=== PATIENT | female | born 1955 | race Caucasian/White ===

== ENCOUNTER 2020-09-08 09:45 | Inpatient (IN) | payer MEDICARE, MEDICAID ==
[~2020-09-08] VITALS: Ht 154.9 cm; Wt 58.1 kg
[2020-09-08 09:59] VITALS: BP 127/65
[2020-09-08 10:24] LABS: BASO # 0.1 10*3/uL (0.0-0.1); EOS % 0.6 % (1.0-4.0); HEMATOCRIT 40.7 % (37.0-47.0); LYMPH # 1.6 10*3/uL (1.3-4.4); LYMPH % 22.3 % (27.0-41.0); MEAN CELL VOLUME 94.7 fl (81.0-99.0); MEAN CORPUSCULAR HGB 29.5 pg (27.0-31.0); MEAN CORPUSCULAR HGB CONC 31.2 g/dl (33.0-37.0); MEAN PLATELET VOLUME 10.7 fl (9.6-12.3); MONO # 0.6 10*3/uL (0.1-1.0); NEUT # 4.8 10*3/uL (2.3-7.9); NEUT % 66.8 % (47.0-73.0); PLATELET COUNT AUTOMATED 236 10*3/uL (130-400); RED CELL DISTRI WIDTH 13.1 % (0-14.5); WHITE BLOOD COUNT 7.1 10*3/uL (4.8-10.8)
[2020-09-08 10:31] LABS: BILIRUBIN Negative (Negative); BLOOD Negative (Negative); CLARITY Cloudy (Clear); COLOR Yellow (Yellow); GLUCOSE Negative (Negative); KETONE Trace (Negative); LEUKO ESTERASE 2+ (Negative); NITRITE Negative (Negative); PH 7.5 (4.5-8.0)
[2020-09-08 10:36] LABS: ACT PARTIAL THROMBO TIME 23.1 SECONDS (20.0-32.1); INTERNATIONAL NORM RATIO 0.9 (2.0-3.5)
[2020-09-08 10:43] LABS: ALBUMIN 3.5 gm/dl (3.1-4.5); ALKALINE PHOSPHATASE 108 U/L (45-117); BUN 15 mg/dl (7-24); CHLORIDE 112 mmol/L (98-107); CREATININE 0.86 mg/dL (0.55-1.02); LIPASE 107 U/L (73-393); POTASSIUM 3.7 mmol/L (3.5-5.1); SGOT/AST 16 IU/L (3-35); SGPT/ALT 20 U/L (12-78); SODIUM 141 mmol/L (136-145); TOTAL PROTEIN 7.4 gm/dL (6.4-8.2)
[2020-09-08 10:44] LABS: TROPONIN I < 0.015 ng/ml (<0.045)
[2020-09-08 10:59] LABS: MUCOUS 2+
[2020-09-08 11:00] LABS: BACTERIA 1+
--- NOTE | 2020-09-08 12:45 | NUR ---
Received call from Candice Atkins CNP regarding [facility] follows this patient in the community and they would like to follow patient in house as well.
[2020-09-08 14:34] VITALS: BP 146/55
--- NOTE | 2020-09-08 14:39 | NUR ---
PATIENT RESTING IN BED WITH EYES CLOSED. RR EASY AND NON-LABORED. CALL LIGHT WITHIN REACH. APPEARS TO BE IN NO DISTRESS AT THIS TIME.
--- NOTE | 2020-09-08 15:00 | NUR ---
PATIENT UP AND TO RESTROOM.
--- NOTE | 2020-09-08 15:12 | NUR ---
GAVE PATIENT A LUNCH BOX.
--- NOTE | 2020-09-08 16:10 | NUR ---
PATIENT UP AND TO RESTROOM
--- NOTE | 2020-09-08 17:00 | NUR ---
PATIENT UP AND TO RESTROOM
--- NOTE | 2020-09-08 17:32 | NUR ---
CALLED NIGEL PLASCENCIA IN [facility] TO FAX MEDICATION LIST FOR PATIENT.
[2020-09-08] MEDS ORDERED: RISPERDAL3 M1 PO (18:04)
[2020-09-08] MEDS ORDERED: BUSPIRONE HCL10 MG PO (18:05)
[2020-09-08] MEDS ORDERED: PANTOPRAZOLE SO40 MG PO (18:06)
[2020-09-08] MEDS ORDERED: CARBAMAZEPINE200 MG PO (18:08)
--- NOTE | 2020-09-08 18:12 | NUR ---
CONSULTED DR. GUTIERREZ.
--- NOTE | 2020-09-08 18:38 | NUR ---
PATIENT RESTING IN BED WATCHING TV. RR EASY AND NON-LABORED. CALL LIGHT WITHIN REACH. PATIENT APPEARS TO BE IN NO DISTRESS, WITH NO COMPLAINTS.
--- NOTE | 2020-09-08 20:29 | NUR ---
PT RESTING IN BED WATCHING TV, NO ACUTE DISTRESS NOTED UPON THIS RN EXITING THE ROOM, CALL LIGHT WITHIN REACH
--- NOTE | 2020-09-08 21:39 | NUR ---
PT RESTING IN BED WITH EYES CLOSED, CALL LIGHT WITHIN REACH, NO ACUTE DISTRESS NOTED UPON THIS RN EXITING THE ROOM
[2020-09-08 23:56] VITALS: BP 141/62
--- NOTE | 2020-09-09 02:14 | NUR ---
TRANSPORTING PT TO ROOM 523 TO KRISTY OLIVA
[2020-09-09 02:20] VITALS: BP 152/66
[2020-09-09 07:22] LABS: BASO # 0.1 10*3/uL (0.0-0.1); EOS # 0.1 10*3/uL (0.0-0.4); EOS % 0.9 % (1.0-4.0); LYMPH # 1.8 10*3/uL (1.3-4.4); LYMPH % 31.5 % (27.0-41.0); MEAN CELL VOLUME 94.5 fl (81.0-99.0); MEAN CORPUSCULAR HGB 29.4 pg (27.0-31.0); MEAN CORPUSCULAR HGB CONC 31.1 g/dl (33.0-37.0); MEAN PLATELET VOLUME 11.1 fl (9.6-12.3); MONO # 0.6 10*3/uL (0.1-1.0); MONO % 10.1 % (3.0-9.0); NEUT # 3.3 10*3/uL (2.3-7.9); NEUT % 56.3 % (47.0-73.0); PLATELET COUNT AUTOMATED 232 10*3/uL (130-400); RED BLOOD COUNT 4.02 10*6/uL (4.10-5.10); RED CELL DISTRI WIDTH 13.1 % (0-14.5); WHITE BLOOD COUNT 5.9 10*3/uL (4.8-10.8)
[2020-09-09 07:59] LABS: ALBUMIN 3.2 gm/dl (3.1-4.5); ALKALINE PHOSPHATASE 93 U/L (45-117); BUN 19 mg/dl (7-24); CHLORIDE 113 mmol/L (98-107); CHOLESTEROL 225 mg/dL (<200); CREATININE 0.65 mg/dL (0.55-1.02); FREE T4 0.82 ng/dl (0.76-1.46); HDL CHOLESTEROL 77 mg/dl (40-60); LDL CHOLESTEROL 124 mg/dL (9-159); POTASSIUM 3.6 mmol/L (3.5-5.1); SGOT/AST 16 IU/L (3-35); SGPT/ALT 17 U/L (12-78); SODIUM 142 mmol/L (136-145); TOTAL PROTEIN 6.4 gm/dL (6.4-8.2); TRIGLYCERIDES 121 mg/dl (<150); VLDL CHOLESTEROL 24 mg/dL (6-40)
[2020-09-09 08:00] VITALS: BP 140/57
[2020-09-09 08:04] LABS: THYROID STIM HORMONE (HS) 0.311 uIU/ml (0.358-4.75)
--- NOTE | 2020-09-09 08:52 | NUR ---
Notified hospitalist nurse director that [facility] would like to follow in the hospital as they follow the patient in the community per Candice Atkins CNP.
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
[2020-09-09 09:51] LABS: VITAMIN D, 25-HYDROXY 31.2 ng/mL (30-100)
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
--- NOTE | 2020-09-09 10:49 | NUR ---
Office notified of consult for pallative care. States they will pass on info to Candice Atkins.
--- NOTE | 2020-09-09 11:03 | NUR ---
Faxed palliative care order to [facility] and notified the [facility] nurse.
--- NOTE | 2020-09-09 11:55 | NUR ---
Covid swab obtained and walked to lab.
--- NOTE | 2020-09-09 11:57 | NUR ---
Received Call From [facility]. Referral is Declined. No Reason Given.
[2020-09-09 12:00] VITALS: BP 100/77
--- NOTE | 2020-09-09 12:30 | NUR ---
Notified by relief RN that while I was at lunch pt had interview with Lucrecia Keene TUBER MACHINE CUTTER for [facility] via IPad.
--- NOTE | 2020-09-09 13:40 | NUR ---
OT NOTE Occupational therapy order received and chart reviewed. Attempted to see patient this AM at bedside however she was under nursing care. Attempted a second time this afternoon and patient was eating her lunch. Will check back when available for an OT eval. Thank you. Shannan Deal, OTR/L
--- NOTE | 2020-09-09 13:40 | NUR ---
PHYSICAL THERAPY Multiple attempts to see patient in AM. Patient eating lunch at 13:40. Will return to complete PT evaluation. Thank you. Daphney Patel,PT,DPT
--- NOTE | 2020-09-09 14:50 | NUR ---
Occupational Therapy evaluation completed on five with full evaluation to follow. Recommend occupational therapy per plan of care and SNF upon discharge. Thank you for this referral. Shannan Deal OTR/L
--- NOTE | 2020-09-09 15:00 | NUR ---
Spoke with Lucrecia Keene states she is able to deem pt incompetent and if the family has any questions regarding this she will call them, states to text or relay their number to her if needed.
--- NOTE | 2020-09-09 15:15 | NUR ---
PHYSICAL THERAPY Physical Therapy evaluation completed on 5E with full evaluation to follow. Low complexity skilled PT evaluation per chart review and evaluation, [id number]. Recommend physical therapy per plan of care and SNF upon discharge. Thank you for this referral. Daphney Patel,PT,DPT
--- NOTE | 2020-09-09 15:20 | NUR ---
I called pharmacy for invega for pt. Spoke with Molly.
[2020-09-09 16:00] VITALS: BP 108/63
--- NOTE | 2020-09-09 16:46 | NUR ---
SPEECH PATHOLOGY Pt seen for bedside swallow evaluation d/t possible aspiration per orders. ROOF BOLTER HELPER ID'd pt via Name and on wrist band. Pt sitting upright in bedside chair, alert, responsive, and cooperative throughout evaluation. CN exam largely WNL. Lingual tremor noted; pt has Dx of Parkinson's. This ROOF BOLTER HELPER provided pt with PO trials of thin water per straw and regular solid (sandra cracker). Pt passed 3 oz water protocol with no s/s noted during or within one minute of completion, clear post-prandial vocal quality noted. Mastication of regular solid somewhat prolonged as pt did not have top dentures in place as she reported they were being cleaned; however, mastication functional for regular textures with adequate oral clearance and no overt s/s noted by this ROOF BOLTER HELPER. RECOMMENDATIONS: REGULAR DIET AND THIN LIQUIDS This ROOF BOLTER HELPER informed pt's RN, Padilla, of diet recommendations. No further ST services warranted at this time. Full report to follow. Thank you for this referral. YOUSUF BARNES M.A. [facility]-ROOF BOLTER HELPER
--- NOTE | 2020-09-09 17:06 | NUR ---
OT NOTE Nursing screen received. Patient is currently on OT caseload. Will continue with POC as able. Thank you. Shannan Deal, OTR/L
--- NOTE | 2020-09-09 17:11 | NUR ---
PHYSICAL THERAPY Nursing screen received and chart reviewed. PT order received and evaluation complete. Recommend SNF at discharge. Thank you. Daphney Patel,PT,DPT
[2020-09-09 20:00] VITALS: BP 116/46
[2020-09-10] VITALS: BP 106/63
--- NOTE | 2020-09-10 08:45 | NUR ---
PHYSICAL THERAPY Patient seen this am 1;1 for therapy visit and was sitting up on EOB upon therapist arrival. Patient identified by name / and joined by OT unit assistant for observation this session. Patient was pleasant, voicing no c/o's pain at this time and transfers sit to stand CGA x 1. Patient ambulates without AD, C++ QUANT DEVELOPER/CGA, 10'x 1 to bathroom, then additional 35'x 1, ad joan in room, C++ QUANT DEVELOPER/CGA, demonstrating slow, cautious gait pattern. Patient was a little unsteady during all 90/180 turns, requiring v/c to improve focus on task. Patient returned to bedside chair with mild fatigue and remained with call light, tray table, telephone, body alarm for safety. Will continue per POC as tolerated, total treatment time 17 minutes. Darell Lu, CORE MICROARCHITECT
--- NOTE | 2020-09-10 09:05 | NUR ---
OT NOTE Pt was seen this A.M. 1:1 for 15 minute OT session. Upon arrival pt was sitting upright on the EOB. Pt identified by name and and had complaints of L shoulder pain which she did not rate on 0-10 pain scale. Pt completed sit to stand from bed level with CGA followed by functional mobility to the bathroom with CGA and verbal prompts for safety awareness due to being impulsive increasing risk of falls. Pt transferred on/off standard commode with CGA due to poor safety awareness with alignment. Clothing management completed with CGA and toilet hygiene completed with SBA while seated. She then stood sink side while washing her hands with SBA. Pt was able to self sequence all tasks. Functional mobility completed back to the recliner with CGA. There she was left sitting upright with call light in hand, tray table in place, and body alarm activated for safety. Continue with rec D/C plan to SNF. VIKCI Gonzalez/Ponce
--- NOTE | 2020-09-10 10:48 | NUR ---
Discussed with Team in MDT Meeting Discharge Plans. [facility] Declined. Daughter had not given Second Choice for Nursing Facility. Pt. came to [facility] From Home with her Daughter. Plan is for Hospitalist Team to Discharge Patient today and She is ordered Invega Sustenna Injection on Monday. Will Call Lucrecia Keene Psych Nurse Practitioner to Inquire if there are Other Medications that Could be Ordered for this Patient to Go Home On. Spoke with Lucrecia Keene via telephone. Advised that Invega Sustenna is High cost for Pt. to Afford and Hospitalist Team would like to Discharge Patient Home. Dr. Ross Gave Orders for Resperdal 2mg HS to Start September 27. Notified Dr. Pascual of Pt. family available to come and get Pt. for Discharge today. Daughter Regina will Pick Pt. Up and Transport Home.
[2020-09-10] MEDS ORDERED: BENZTROPINE ME0.5 MG PO (10:55)
[2020-09-10] MEDS ORDERED: RIVASTIGMINE1 EAC1 T (10:55)
[2020-09-10] MEDS ORDERED: AMLODIPINE BESYL5 MG PO (10:55)
[2020-09-10] MEDS ORDERED: LUMIGAN50 DRP OPH (10:56)
--- NOTE | 2020-09-10 12:05 | NUR ---
Spoke with Dr. Pascual regarding risperdel on dc meds still at 6 mg at HS. Notified that in case management notes it says that Kody Keene PAPER TESTING SUPERVISOR wanted pt on 2mg and not to start until 09/27/20. States she will update on dc instructions.
[2020-09-10] MEDS ORDERED: RISPERDAL2 M1 PO (12:08)
--- NOTE | 2020-09-10 13:20 | NUR ---
Spoke with pt daughter Regina notified that pt is ready for dc. Reviewed dc instructions with daughter over phone and also informed her that I had written when pt needs next doses of medication. Verbalized understanding. States she will be here in about 30 minutes to machine operator picker her mom.
--- NOTE | 2020-09-10 14:13 | NUR ---
Pt dc via wheelchair by this RN. Met daughter out main entrance and pt dc in care of daughter. QUestions answered.
--- NOTE | 2020-09-14 07:34 | NUR ---
PHYSICAL THERAPY CO-SIGN I approve of the Physical Therapy notes written above. CECELIA BROWN PT, DPT
--- NOTE | 2020-09-14 07:45 | NUR ---
OCCUPATIONAL THERAPY CO-SIGN I approve of the Occupational Therapy notes written above. LONNIE BOBO, OTR/L
== END 2020-09-10 14:13 | disposition home or self-care (01) | DRG 689 ==
LOC: ED 09:45 → EDSEX 09:49 → 5E 14:12 → EDHOLD 14:12 → 5E 22:50
PROVIDERS: Emergency Medicine; Registered Nurse; ADMIT Internal Medicine; ATTEND Internal Medicine
DX: N39.0 Urinary tract infection, site not specified (principal); G93.41 Metabolic encephalopathy; E44.1 Mild protein-calorie malnutrition; F03.90 Unspecified dementia, unspecified severity, without behavioral disturbance, psychotic disturbance, mood disturbance, and anxiety; I10 Essential (primary) hypertension; H40.9 Unspecified glaucoma; K21.9 Gastro-esophageal reflux disease without esophagitis; G20 Parkinson's disease; F25.0 Schizoaffective disorder, bipolar type; Z20.828 Contact with and (suspected) exposure to other viral communicable diseases; F31.9 Bipolar disorder, unspecified; Z88.0 Allergy status to penicillin; Z91.041 Radiographic dye allergy status; Z91.011 Allergy to milk products; Z68.24 Body mass index [BMI] 24.0-24.9, adult

== ENCOUNTER 2022-12-23 11:43 | Emergency (ER) | payer MEDICARE, MEDICAID ==
[~2022-12-23] VITALS: Ht 154.9 cm; Wt 51.3 kg
[~2022-12-23 11:43] MED LIST: AMLODIPINE BESYL5 MG PO; BENZTROPINE ME0.5 MG PO; BUSPIRONE HCL10 MG PO; CARBAMAZEPINE200 MG PO; LUMIGAN50 DRP OPH; PANTOPRAZOLE SO40 MG PO; RISPERDAL2 M1 PO; RISPERDAL3 M1 PO; RIVASTIGMINE1 EAC1 T
[2022-12-23 12:55] LABS: BASO # 0.1 10*3/uL (0.0-0.1); BASO % 0.9 % (0.0-1.0); EOS # 0.2 10*3/uL (0.0-0.4); EOS % 2.4 % (1.0-4.0); HEMATOCRIT 40.1 % (37.0-47.0); LYMPH # 2.2 10*3/uL (1.3-4.4); LYMPH % 24.5 % (27.0-41.0); MEAN CELL VOLUME 102.3 fl (81.0-99.0); MEAN CORPUSCULAR HGB 32.1 pg (27.0-31.0); MEAN CORPUSCULAR HGB CONC 31.4 g/dl (33.0-37.0); MEAN PLATELET VOLUME 11.6 fl (9.6-12.3); MONO # 0.7 10*3/uL (0.1-1.0); MONO % 7.6 % (3.0-9.0); NEUT # 5.7 10*3/uL (2.3-7.9); NEUT % 64.4 % (47.0-73.0); PLATELET COUNT AUTOMATED 251 10*3/uL (130-400); RED BLOOD COUNT 3.92 10*6/uL (4.10-5.10); RED CELL DISTRI WIDTH 13.3 % (0-14.5); WHITE BLOOD COUNT 8.8 10*3/uL (4.8-10.8)
[2022-12-23 13:11] LABS: ACT PARTIAL THROMBO TIME 27.9 SECONDS (20.0-32.1)
[2022-12-23 13:13] LABS: ALKALINE PHOSPHATASE 95 U/L (46-116); BUN 13 mg/dl (9-23); CHLORIDE 106 mmol/L (98-107); LIPASE 30 U/L (12-53); POTASSIUM 4.5 mmol/L (3.4-5.1); SGPT/ALT 21 U/L (10-49); TOTAL PROTEIN 6.8 gm/dL (6.0-8.0)
[2022-12-23 13:25] LABS: BILIRUBIN Negative (Negative); BLOOD Negative (Negative); CLARITY Turbid (Clear); COLOR Yellow (Yellow); GLUCOSE Negative (Negative); KETONE Negative (Negative); LEUKO ESTERASE Trace (Negative); NITRITE Negative (Negative); SPECIFIC GRAVITY 1.015 (1.001-1.030); UROBILINOGEN 0.2 E.U./dl (0.0-1.0)
[2022-12-23 13:54] LABS: BACTERIA 2+
== END 2022-12-23 16:45 ==
LOC: ED
PROVIDERS: Emergency Medicine
DX: R10.9 Unspecified abdominal pain (principal); Z88.0 Allergy status to penicillin; Z91.041 Radiographic dye allergy status; Z91.011 Allergy to milk products; Z79.899 Other long term (current) drug therapy

== ENCOUNTER 2024-04-01 12:27 | Inpatient (IN) | payer MEDICARE ==
[~2024-04-01 12:27] MED LIST changes: +ALPHAGAN-P 0.2%5 ML OPH; +ARTIFICIAL TEAR1512 OU; +AZOPT OP; +COL-RITE100 M1 PO; +COLACE 2-IN-11 EACH PO; +CRANBERRY200 MG PO; +EXELON1 EAC2 TD; +FLUTICASONE PRO12 G2 NAS; +LASIX20 MG PO; +LATUDA80 M1 PO; +LEVOXYL88 MCG PO; +LOPERAMIDE HCL2 MG PO; +MELATONIN3 MG PO; +MIRALAX119 GM PO; +MULTIPLE VITAM1 EAC1 PO; +MYLANTA MAXIMU355 M1 PO; +NORVASC5 MG PO; +OXYBUTYNIN5 MG PO; +OYSTER SHELL C1 EAC9 PO; +Ondansetron4 MG PO; +POTASSIUM CHLO20 ME3 PO; +PRAVASTATIN SOD10 MG PO; +REMERON30 M1 PO; +TOPAMAX100 M1 PO; +TRELEGY ELLIPT1 EACH INH; +TYLENOL EXTRA500 MG PO; +VISTARIL25 MG PO
[2024-04-01] MEDS ORDERED: LORazepam 1 MG TAB PO PRN (14:40)
[2024-04-01] MEDS ORDERED: Ziprasidone Mesylate 20 MG VIAL IM PRN (14:45)
[2024-04-01] MEDS ORDERED: LORazepam 2 MG/ML VIAL IM PRN (14:45)
[2024-04-01] MEDS ORDERED: Water, Sterile 10 ML VIAL IM PRN (14:50)
[2024-04-01 15:14] VITALS: BP 104/62
[2024-04-01] MEDS ORDERED: ACETAMINOPHEN 325 MG TAB PO PRN (17:10)
[2024-04-01] MEDS ORDERED: MG-AL HYDROXIDE/SIMETICONE 30 ML UDC PO PRN (17:10)
[2024-04-01] MEDS ORDERED: Magnesium Hydroxide 30 ML UDC PO PRN (17:10)
[2024-04-01] MEDS ORDERED: Loperamide Hydrochloride 2 MG CAP PO PRN (18:10)
[2024-04-01] MEDS ORDERED: Ondansetron Hydrochloride 4 MG TAB PO PRN (18:10)
[2024-04-01 20:00] VITALS: BP 118/50
[2024-04-01] MEDS ORDERED: BUDESONIDE 0.5 MG AMP NEB SCH (20:00)
[2024-04-01] MEDS ORDERED: DOCUSATE SODIUM 100 MG CAP PO SCH (21:00)
[2024-04-01] MEDS ORDERED: ACETAMINOPHEN 500 MG TAB PO SCH (21:00)
[2024-04-01] MEDS ORDERED: Hypromellose 25 ML BOT OPH SCH (21:00)
[2024-04-01] MEDS ORDERED: CALCIUM (OSCAL) 500MG PO SCH (21:00)
[2024-04-01] MEDS ORDERED: Mirtazapine 15 MG TAB PO SCH (21:00)
[2024-04-01] MEDS ORDERED: BRINZOLAMIDE OP SCH (21:00)
[2024-04-01] MEDS ORDERED: BREXPIPRAZOLE 1 MG TABLET PO SCH (21:00)
[2024-04-01] MEDS ORDERED: BRIMONIDINE 0.2% 5 ML BOTTLE OPH SCH (21:00)
[2024-04-01] MEDS ORDERED: TOPIRAMATE 100 MG TAB PO SCH (22:00)
[2024-04-01] MEDS ORDERED: Levothyroxine Sodium 88 MCG TAB PO SCH (22:00)
[2024-04-01] MEDS ORDERED: BIMATOPROST 50 DRP BOT OPH SCH (22:00)
[2024-04-02 07:58] LABS: BASO # 0.1 10*3/uL (0.0-0.1); BASO % 1.1 % (0.0-1.0); EOS # 0.1 10*3/uL (0.0-0.4); EOS % 1.9 % (1.0-4.0); HEMATOCRIT 40.8 % (37.0-47.0); LYMPH # 1.6 10*3/uL (1.3-4.4); LYMPH % 25.7 % (27.0-41.0); MEAN CORPUSCULAR HGB 31.6 pg (27.0-31.0); MEAN CORPUSCULAR HGB CONC 31.9 g/dl (33.0-37.0); MEAN PLATELET VOLUME 11.1 fl (9.6-12.3); MONO # 0.5 10*3/uL (0.1-1.0); MONO % 8.1 % (3.0-9.0); NEUT % 62.9 % (47.0-73.0); PLATELET COUNT AUTOMATED 201 10*3/uL (130-400); RED BLOOD COUNT 4.12 10*6/uL (4.10-5.10); WHITE BLOOD COUNT 6.4 10*3/uL (4.8-10.8)
[2024-04-02 08:00] VITALS: BP 118/50
[2024-04-02] MEDS ORDERED: Albuterol Sulf/Ipratropium 3 ML VIAL NEB SCH (08:25)
[2024-04-02 08:28] LABS: ALKALINE PHOSPHATASE 84 U/L (46-116); BUN 16 mg/dl (9-23); CHLORIDE 107 mmol/L (98-107); CHOLESTEROL 161 mg/dL (<200); LDL CHOLESTEROL 75 mg/dL (9-159); POTASSIUM 3.8 mmol/L (3.4-5.1); SGPT/ALT 15 U/L (5-49); TOTAL PROTEIN 6.5 gm/dL (6.0-8.0); TRIGLYCERIDES 106 mg/dl (<150)
[2024-04-02 08:48] LABS: VITAMIN D, 25-HYDROXY 55.9 ng/mL (30-100)
[2024-04-02] MEDS ORDERED: Polyethylene Glycol 3350 17 GM PACKET PO SCH (09:00)
[2024-04-02] MEDS ORDERED: MULTIVITAMIN 1 TAB TAB PO SCH (09:00)
[2024-04-02] MEDS ORDERED: amLODIPine besylate 5 MG TAB PO SCH (09:00)
[2024-04-02] MEDS ORDERED: Rivastigmine Tartrate 4.6 MG/24 HR PATCH T SCH (09:00)
[2024-04-02] MEDS ORDERED: Paliperidone 3 MG TER PO SCH (09:35)
[2024-04-02] MEDS ORDERED: UMECLIDIN INH SCH (10:00)
[2024-04-02] MEDS ORDERED: POTASSIUM CHLORIDE 20 MEQ TAB PO SCH (10:00)
[2024-04-02] MEDS ORDERED: VILANTER INH SCH (10:00)
[2024-04-02] MEDS ORDERED: FUROSEMIDE 20 MG TAB PO SCH (10:00)
[2024-04-02] MEDS ORDERED: FLUTICASONE INH SCH (10:00)
[2024-04-02] MEDS ORDERED: SIMVASTATIN 20 MG TAB PO SCH (10:00)
[2024-04-02] MEDS ORDERED: Oxybutynin Chloride 5 MG TAB PO SCH (10:00)
[2024-04-02 20:00] VITALS: BP 108/60
[2024-04-02] MEDS ORDERED: Memantine Hydrochloride 5 MG TAB PO SCH (21:00)
[2024-04-03 07:55] VITALS: BP 96/58
[2024-04-03] MEDS ORDERED: Memantine Hydrochloride 5 MG TAB PO SCH (09:00)
[2024-04-03] MEDS ORDERED: Rivastigmine Tartrate 9.5 MG/24 HR PATCH T SCH (09:00)
[2024-04-03 19:17] VITALS: BP 120/72
[2024-04-04 07:59] VITALS: BP 123/50
[2024-04-04] MEDS ORDERED: Memantine Hydrochloride 5 MG TAB PO SCH (09:00)
[2024-04-04] MEDS ORDERED: Albuterol Sulf/Ipratropium 3 ML VIAL NEB PRN (10:25)
[2024-04-04] MEDS ORDERED: Cyproheptadine Hydrochloride 4 MG TAB PO SCH (11:00)
[2024-04-04 20:00] VITALS: BP 104/60
[2024-04-04] MEDS ORDERED: Memantine Hydrochloride 10 MG TAB PO SCH (21:00)
[2024-04-04 22:10] LABS: BILIRUBIN Negative (Negative); BLOOD Negative (Negative); CLARITY Clear (Clear); COLOR Yellow (Yellow); GLUCOSE Negative (Negative); KETONE Negative (Negative); LEUKO ESTERASE 2+ (Negative); NITRITE Negative (Negative); UROBILINOGEN 0.2 E.U./dl (0.0-1.0)
[2024-04-04 22:44] LABS: BACTERIA TRACE; WBC 31-40 wbc/hpf (0-5)
[2024-04-05 08:00] VITALS: BP 129/53
[2024-04-05 20:00] VITALS: BP 113/61
[2024-04-06 08:00] VITALS: BP 129/58
[2024-04-06 20:00] VITALS: BP 135/60
[2024-04-07 07:05] LABS: BASO # 0.1 10*3/uL (0.0-0.1); EOS # 0.2 10*3/uL (0.0-0.4); HEMATOCRIT 42.7 % (37.0-47.0); LYMPH # 2.3 10*3/uL (1.3-4.4); LYMPH % 31.4 % (27.0-41.0); MEAN CELL VOLUME 99.8 fl (81.0-99.0); MEAN CORPUSCULAR HGB 31.3 pg (27.0-31.0); MEAN CORPUSCULAR HGB CONC 31.4 g/dl (33.0-37.0); MEAN PLATELET VOLUME 11.6 fl (9.6-12.3); MONO # 0.8 10*3/uL (0.1-1.0); MONO % 11.1 % (3.0-9.0); NEUT % 54.2 % (47.0-73.0); PLATELET COUNT AUTOMATED 181 10*3/uL (130-400); RED BLOOD COUNT 4.28 10*6/uL (4.10-5.10); RED CELL DISTRI WIDTH 12.7 % (0-14.5); WHITE BLOOD COUNT 7.3 10*3/uL (4.8-10.8)
[2024-04-07 07:53] VITALS: BP 142/66
[2024-04-07] MEDS ORDERED: Paliperidone 6 MG TER PO SCH (09:00)
[2024-04-07] MEDS ORDERED: Memantine Hydrochloride 10 MG TAB PO SCH (09:00)
[2024-04-07 19:37] VITALS: BP 138/62
[2024-04-07] MEDS ORDERED: Ciprofloxacin Hydrochloride 500 MG TAB PO SCH (21:00)
[2024-04-08 08:00] VITALS: BP 104/53
[2024-04-08] MEDS ORDERED: DRONABINOL 2.5 MG CAP PO SCH (16:30)
[2024-04-08 20:00] VITALS: BP 105/70
[2024-04-08] MEDS ORDERED: Memantine Hydrochloride 10 MG TAB PO SCH (21:00)
[2024-04-08] MEDS ORDERED: clomiPRAMINE Hydrochloride 25 MG CAP PO SCH (21:00)
[2024-04-09 08:00] VITALS: BP 118/86
[2024-04-09] MEDS ORDERED: RIVASTIGMINE 13.3 MG/24 HR TDM T SCH (09:00)
[2024-04-09 20:00] VITALS: BP 120/61
[2024-04-09] MEDS ORDERED: clomiPRAMINE Hydrochloride 25 MG CAP PO SCH (21:00)
[2024-04-10 08:00] VITALS: BP 115/62
[2024-04-10 18:31] VITALS: BP 120/62
[2024-04-11 08:00] VITALS: BP 97/64
[2024-04-11] MEDS ORDERED: PALIPERIDONE 9 MG PO SCH (09:00)
[2024-04-11 11:19] LABS: ALKALINE PHOSPHATASE 72 U/L (46-116); BUN 8 mg/dl (9-23); CHLORIDE 107 mmol/L (98-107); FREE T4 1.09 ng/dl (0.89-1.76); POTASSIUM 3.8 mmol/L (3.4-5.1); SGPT/ALT 19 U/L (5-49); TOTAL PROTEIN 5.6 gm/dL (6.0-8.0)
[2024-04-11 19:22] VITALS: BP 101/60
[2024-04-11] MEDS ORDERED: RISPERIDONE 0.5 MG TAB PO SCH (21:00)
[2024-04-12 08:00] VITALS: BP 120/57
[2024-04-12 20:00] VITALS: BP 120/60
[2024-04-13 08:00] VITALS: BP 114/58
[2024-04-13] MEDS ORDERED: Polyethylene Glycol 3350 17 GM PACKET PO PRN (13:37)
[2024-04-13 18:52] VITALS: BP 122/84
[2024-04-14 07:58] LABS: BASO # 0.1 10*3/uL (0.0-0.1); BASO % 0.9 % (0.0-1.0); EOS # 0.2 10*3/uL (0.0-0.4); HEMATOCRIT 36.8 % (37.0-47.0); LYMPH # 1.9 10*3/uL (1.3-4.4); LYMPH % 25.9 % (27.0-41.0); MEAN CELL VOLUME 97.6 fl (81.0-99.0); MEAN CORPUSCULAR HGB 31.3 pg (27.0-31.0); MEAN CORPUSCULAR HGB CONC 32.1 g/dl (33.0-37.0); MEAN PLATELET VOLUME 10.8 fl (9.6-12.3); MONO # 0.9 10*3/uL (0.1-1.0); MONO % 11.5 % (3.0-9.0); NEUT # 4.4 10*3/uL (2.3-7.9); NEUT % 59.4 % (47.0-73.0); PLATELET COUNT AUTOMATED 238 10*3/uL (130-400); RED BLOOD COUNT 3.77 10*6/uL (4.10-5.10); RED CELL DISTRI WIDTH 12.8 % (0-14.5); WHITE BLOOD COUNT 7.4 10*3/uL (4.8-10.8)
[2024-04-14 08:00] VITALS: BP 119/46
[2024-04-14 08:45] LABS: ALKALINE PHOSPHATASE 77 U/L (46-116); BUN 10 mg/dl (9-23); CHLORIDE 105 mmol/L (98-107); POTASSIUM 4.2 mmol/L (3.4-5.1); SGPT/ALT 19 U/L (5-49); TOTAL PROTEIN 6.3 gm/dL (6.0-8.0)
[2024-04-14 20:00] VITALS: BP 130/68
[2024-04-15 07:39] VITALS: BP 118/57
[2024-04-15] MEDS ORDERED: RISPERIDONE 100 MG/0.28 ML SUSER.SYR SQ SCH (10:00)
[2024-04-15 20:00] VITALS: BP 101/52
[2024-04-16 08:00] VITALS: BP 99/53
[2024-04-16] MEDS ORDERED: RISPERIDONE 100 MG/0.28 ML SUSER.SYR SQ SCH (09:00)
[2024-04-16 20:00] VITALS: BP 100/62
[2024-04-17 07:50] VITALS: BP 150/56
[2024-04-17 20:00] VITALS: BP 126/73
[2024-04-18 07:48] VITALS: BP 114/52
[2024-04-18] MEDS ORDERED: UZEDY125 MG/0.3 SQ (09:11)
[2024-04-18] MEDS ORDERED: RIVASTIGMINE1 EAC2 T (09:11)
[2024-04-18] MEDS ORDERED: CLOMIPRAMINE25 MG PO (09:11)
[2024-04-18] MEDS ORDERED: MEMANTINE HCL10 MG PO (09:11)
[2024-04-18] MEDS ORDERED: TOPAMAX100 M1 PO (09:11)
[2024-05-13] MEDS ORDERED: RISPERIDONE 125 MG/0.35 ML SUSER.SYR SQ SCH (09:00)
== END 2024-04-18 14:50 | DRG 885 ==
LOC: 3N 12:27
PROVIDERS: Internal Medicine; Nurse Practitioner; ADMIT Psychiatry & Neurology Psychiatry; ATTEND Psychiatry & Neurology Psychiatry
PROC: GZHZZZZ Group Psychotherapy (ICD-10-PCS; principal; 2024-04-02)
PROC: GZ51ZZZ Individual Psychotherapy, Behavioral (ICD-10-PCS; 2024-04-02)
DX: F25.0 Schizoaffective disorder, bipolar type (principal); N39.0 Urinary tract infection, site not specified; F02.80 Dementia in other diseases classified elsewhere, unspecified severity, without behavioral disturbance, psychotic disturbance, mood disturbance, and anxiety; G30.1 Alzheimer's disease with late onset; B96.5 Pseudomonas (aeruginosa) (mallei) (pseudomallei) as the cause of diseases classified elsewhere; F41.1 Generalized anxiety disorder; F42.9 Obsessive-compulsive disorder, unspecified; K59.09 Other constipation; E03.9 Hypothyroidism, unspecified; E78.2 Mixed hyperlipidemia; R32 Unspecified urinary incontinence; Z88.0 Allergy status to penicillin; Z91.041 Radiographic dye allergy status

== ENCOUNTER → 2024-05-24 | Outpatient (CLI) | payer MEDICARE ==
[~2024-05-24] MED LIST changes: +24 HOUR ALLER15.8 ML NAS; +ASPIRIN ADULT L81 M2 PO; +AZOPT OU; +BRIMONIDINE TAR10 ML OD; +CLOMIPRAMINE HC75 MG PO; +CLOMIPRAMINE25 MG PO; +DOCUSATE SOD100 MG PO; +LUMIGAN50 DRP OU; +MEMANTINE HCL10 MG PO; +MILK OF MA400 MG/53 PO; +MIRALAX POWDER17 G1 PO; +MIRTAZAPINE7.5 MG PO; +NAMENDA-5 PO; +OYSTER SHELL PO; +PEPCID20 MG PO; +PRAVASTATIN SOD40 MG PO; +RIVASTIGMINE T4.5 M1 PO; +RIVASTIGMINE1 EAC2 T; +UZEDY125 MG/0.3 SQ
== END | disposition home or self-care (01) ==
LOC: ORTHO 02:51
PROVIDERS: ATTEND Orthopaedic Surgery
DX: S72.141D Displaced intertrochanteric fracture of right femur, subsequent encounter for closed fracture with routine healing (principal); X58.XXXD Exposure to other specified factors, subsequent encounter

== ENCOUNTER → 2024-07-01 | Outpatient (CLI) | payer MEDICARE | END | disposition home or self-care (01) | LOC: RAD 10:13 | PROVIDERS: ATTEND Orthopaedic Surgery | DX: S72.141D Displaced intertrochanteric fracture of right femur, subsequent encounter for closed fracture with routine healing (principal); X58.XXXD Exposure to other specified factors, subsequent encounter ==

== ENCOUNTER 2025-01-12 18:22 | Emergency (ER) | payer MEDICARE ==
[2025-01-12] MEDS ORDERED: Acetaminophen/Oxycodone 5 MG/325 MG TABLET PO ONE (18:25)
== END 2025-01-12 21:33 ==
LOC: ED 18:22
DX: S09.90XA Unspecified injury of head, initial encounter (principal); M25.551 Pain in right hip; Z91.041 Radiographic dye allergy status; Z88.0 Allergy status to penicillin; Z91.048 Other nonmedicinal substance allergy status; Z79.82 Long term (current) use of aspirin; Z79.899 Other long term (current) drug therapy; F31.9 Bipolar disorder, unspecified; I10 Essential (primary) hypertension; F20.9 Schizophrenia, unspecified; W05.0XXA Fall from non-moving wheelchair, initial encounter; Y93.89 Activity, other specified; Y92.129 Unspecified place in nursing home as the place of occurrence of the external cause; Y99.8 Other external cause status

== ENCOUNTER 2025-05-28 05:40 | Inpatient (IN) | payer OTHER ==
[~2025-05-28] VITALS: Ht 160 cm; Wt 59.0 kg
[2025-05-28 05:43] VITALS: BP 140/53
[2025-05-28 06:05] LABS: BILIRUBIN Negative (Negative); BLOOD Negative (Negative); CLARITY Cloudy (Clear); COLOR Yellow (Yellow); KETONE Negative (Negative); LEUKO ESTERASE Negative (Negative); NITRITE Negative (Negative); PH 7.0 (4.5-8.0); SPECIFIC GRAVITY 1.010 (1.001-1.030); UROBILINOGEN 0.2 E.U./dl (0.0-1.0)
[2025-05-28 06:23] LABS: BUN 22 mg/dl (9-23)
[2025-05-28 06:25] LABS: BASO # 0.0 10*3/uL (0.0-0.1); BASO % 0.4 % (0.0-1.0); EOS # 0.0 10*3/uL (0.0-0.4); EOS % 0.1 % (1.0-4.0); MEAN CELL VOLUME 102.3 fl (81.0-99.0); MEAN CORPUSCULAR HGB 30.9 pg (27.0-31.0); MEAN PLATELET VOLUME 11.7 fl (9.6-12.3); MONO # 0.8 10*3/uL (0.1-1.0); MONO % 10.1 % (3.0-9.0); NEUT # 5.4 10*3/uL (2.3-7.9); NEUT % 70.3 % (47.0-73.0); NUCLEATED RED BLOOD CELL 0.0 % (0.0-0.0); NUCLEATED RED BLOOD CELL 0.0 10*3/uL (0.0-0.0); PLATELET COUNT AUTOMATED 181 10*3/uL (130-400); RED CELL DISTRI WIDTH 14.0 % (0-14.5)
[2025-05-28 06:30] LABS: BACTERIA 2+
[2025-05-28] MEDS ORDERED: Albuterol Sulf/Ipratropium 3 ML VIAL NEB SCH (08:25)
[2025-05-28 08:54] LABS: ABG BASE EXCESS 3.4 mmol/L (-2.0-3.0); ABG O2 SATURATION 93.3 % (94.0-98.0); ARTERIAL BLOOD GAS PH 7.38 (7.350-7.450); ARTERIAL BLOOD GAS PO2 63.3 mmHg (83.0-108.0)
[2025-05-28] MEDS ORDERED: MIRTAZAPINE15 M2 PO (08:57)
[2025-05-28] MEDS ORDERED: AZITHROMYCIN 250 ML IV SCH (09:00)
[2025-05-28] MEDS ORDERED: Synthroid,Lev100 MCG PO (09:03)
[2025-05-28] MEDS ORDERED: PREDNISONE20 M1 PO (09:04)
[2025-05-28] MEDS ORDERED: VITAMIN D310 MC1 PO (09:05)
[2025-05-28] MEDS ORDERED: Ipratropium Brom3 ML INH (09:06)
[2025-05-28] MEDS ORDERED: OMEPRAZOLE40 MG PO (09:06)
[2025-05-28] MEDS ORDERED: DORZOLAMIDE 2%10 ML OP (09:07)
[2025-05-28] MEDS ORDERED: GUAIFENESI100 MG/56 PO (09:08)
[2025-05-28] MEDS ORDERED: GUAIFENESIN 600 MG TAB ER PO SCH (10:00)
[2025-05-28] MEDS ORDERED: FAMOTIDINE 20 MG TAB PO SCH (10:00)
[2025-05-28 13:21] VITALS: BP 104/50
[2025-05-28] MEDS ORDERED: ACETAMINOPHEN 325 MG TAB PO SCH (14:00)
[2025-05-28] MEDS ORDERED: SODIUM CHLORIDE 0.9% 1,000 ML IV ONE (14:15)
[2025-05-28 16:12] VITALS: BP 109/43
[2025-05-28 16:40] VITALS: BP 127/47
[2025-05-28 20:00] VITALS: BP 127/48
[2025-05-28] MEDS ORDERED: TOPIRAMATE 100 MG TAB PO SCH (22:00)
[2025-05-28] MEDS ORDERED: Mirtazapine 15 MG TAB PO SCH (22:00)
[2025-05-28] MEDS ORDERED: SIMVASTATIN 20 MG TAB PO SCH (22:00)
[2025-05-28] MEDS ORDERED: clomiPRAMINE Hydrochloride 25 MG CAP PO SCH (22:00)
[2025-05-29] VITALS: BP 85/50
[2025-05-29 08:00] VITALS: BP 141/65
[2025-05-29] MEDS ORDERED: HEEL PROTECTOR DEVICE ONE (11:35)
[2025-05-29 16:00] VITALS: BP 139/57
[2025-05-29 20:00] VITALS: BP 133/57
[2025-05-30] VITALS: BP 121/58
[2025-05-30] MEDS ORDERED: PREDNISONE5 MG PO (07:39)
[2025-05-30] MEDS ORDERED: CEFUROXIME AXE500 MG PO (07:39)
[2025-05-30 08:00] VITALS: BP 145/45
== END 2025-05-30 12:50 | DRG 189 ==
LOC: ED 05:40 → ICCU 08:04 → EDHOLD 08:04 → ICCU 16:28
PROVIDERS: Internal Medicine; ADMIT Internal Medicine; ATTEND Internal Medicine
PROC: 5A09357 Assistance with Respiratory Ventilation, Less than 24 Consecutive Hours, Continuous Positive Airway Pressure (ICD-10-PCS; principal; 2025-05-28)
DX: J96.01 Acute respiratory failure with hypoxia (principal); J44.1 Chronic obstructive pulmonary disease with (acute) exacerbation; J44.0 Chronic obstructive pulmonary disease with (acute) lower respiratory infection; Z20.822 Contact with and (suspected) exposure to COVID-19; I10 Essential (primary) hypertension; G30.1 Alzheimer's disease with late onset; F02.80 Dementia in other diseases classified elsewhere, unspecified severity, without behavioral disturbance, psychotic disturbance, mood disturbance, and anxiety; F25.9 Schizoaffective disorder, unspecified; J20.9 Acute bronchitis, unspecified; F31.9 Bipolar disorder, unspecified; G25.2 Other specified forms of tremor; D75.89 Other specified diseases of blood and blood-forming organs; E03.9 Hypothyroidism, unspecified; Z66 Do not resuscitate; N32.81 Overactive bladder; Z88.0 Allergy status to penicillin; Z88.8 Allergy status to other drugs, medicaments and biological substances; Z91.09 Other allergy status, other than to drugs and biological substances; Z87.891 Personal history of nicotine dependence; Z79.899 Other long term (current) drug therapy; Z79.01 Long term (current) use of anticoagulants; Z79.2 Long term (current) use of antibiotics